=== PATIENT | male | born 1985 ===

== ENCOUNTER 2017-05-03 11:41 | Emergency (ER) | payer BC ==
--- NOTE | 2017-05-03 13:15 | UC ---
[facility] HPI - HPI Summary HPI Summary: 31 y/o male presents to the urgent care c/o LF gum swelling and molar pain for the past 2 days. He is having difficulty eating and sleeping last night due to pain. Nov[place] has never seen a dentist. Pain is 8/10. Pt has taking Excedrin PO yesterday which has not helped. Pt denies fever, SOB, chest pain, N/V/D. - History of Current Complaint Chief Complaint: UCDentalProblem Stated Complaint: MOUTH SWELLING Time Seen by Provider: 05/03/17 13:04 Hx Obtained From: Patient Onset/Duration: Gradual Onset, Lasting Days - 2 day Severity: Severe Pain Intensity: 8 Pain Scale Used: 0-10 Numeric Aggravating: Chewing, Other - eating Alleviating: OTC Meds Related History: Swelling - Allergies/Home Medications Allergies/Adverse Reactions: Allergies Allergy/AdvReac Type Severity Reaction Status Date / Time No Known Allergies Allergy Verified 05/03/17 12:19 Home Medications: Home Medications Bervyrq-[id number]-Uajsoead [Excedrin Extra Strength] 1 tab PO 05/03/17 [ History] PMH/Surg Hx/FS Hx/Imm Hx Previously Healthy: Yes Other Endocrine History: ITP in remission since 4 years ago - Surgical History Surgical History: None - Family History Known Family History: Positive: None - Pt denies FMHX - Social History Occupation: Employed Full-time Lives: With Family Alcohol Use: None Alcohol Amount: at communion Substance Use Type: Marijuana Substance Use Comment - Amount & Last Used: every 3 months Smoking Status (MU): Light Every Day Tobacco Smoker Type: Cigarettes Review of Systems Constitutional: Negative Skin: Negative Eyes: Negative ENT: Sore Throat, Other - LF upper gum sweeling and molar pain Respiratory: Negative Cardiovascular: Negative Gastrointestinal: Negative Genitourinary: Negative Motor: Negative Neurovascular: Negative Musculoskeletal: Negative Neurological: Negative Psychological: Negative Is Patient Immunocompromised?: No All Other Systems Reviewed And Are Negative: Yes Physical Exam Triage Information Reviewed: Yes Appearance: Well-Appearing, Well-Nourished, Pain Distress - moderate Vital Signs: Initial Vital Signs Temp 98.2 F 05/03/17 12:14 Pulse 65 05/03/17 12:14 Resp 18 05/03/17 12:14 BP 122/79 05/03/17 12:14 Pulse Ox 100 09/09/17 12:14 Vital Signs Reviewed: Yes Eye Exam: Normal Eyes: Positive: Conjunctiva Clear - PERRLA, EOMI, ENT: Positive: Normal ENT inspection, Hearing grossly normal, Pharyngeal erythema. Negative: Tonsillar swelling, Tonsillar exudate, Trismus Dental: Positive: Percussion Tenderness @ - molar # 16., Gross Decay/Caries @ - Left upper jaw with moderate swelling and and erythema on #16 LF back molar. mild yellowish discharge observed., Abscess @, Cervical Lymphadenopathy - LF anterior cervical lymphadenopathy tender and swollen to palapation. Negative: Bleeding Neck exam: Normal Neck: Positive: Supple, Nontender Respiratory Exam: Normal Respiratory: Positive: Chest non-tender, Lungs clear, Normal breath sounds, No respiratory distress Cardiovascular Exam: Normal Cardiovascular: Positive: RRR, No Murmur, Pulses Normal Abdominal Exam: Normal Abdomen Description: Positive: Nontender, No Organomegaly, Soft. Negative: CVA Tenderness (R), CVA Tenderness (L) Bowel Sounds: Positive: Present Musculoskeletal Exam: Normal Musculoskeletal: Positive: Strength Intact, ROM Intact, No Edema Neurological Exam: Normal Psychological Exam: Normal Skin Exam: Normal Dental Complaint Course/Dx - Course Course Of Treatment: 31 y/o male presents to the urgent care c/o LF gum swelling and molar pain for the past 2 days. He is having difficulty eating and sleeping last night due to pain. [place] has never seen a dentist. Pain is 8/10. Pt has taking Excedrin PO yesterday which has not helped. Pt denies fever, SOB, chest pain, N/V/D.Hx obtained. PE abnormal finding:Dental: Positive: Percussion Tenderness @ - molar # 16., Gross Decay/Caries @ - Left upper jaw with moderate swelling and erythema on #16 LF back molar. mild yellowish discharge observed., positive LF anterior cervical lymphadenopathy tender and swollen to palapation. Pt with probably a dental abscess. Pt given Lidocaine viscous tp apply topically with a gauze at the clinic. Ceftriaxone IM inj ordered and Toradol IM inj for pain. Pt tolerated well medications and felt better after 20 minutes of observation. Patient strongly given a list of Dentist and strongly advised to f/u with Dentist as soon as possible. Patient was instructed to return to the urgent care immediately if any of the symptoms return or worsens. If he develops any fever or increase in pain, or trismus despite taking antibiotics to go immediately to the ER for further management. Plan of care was discussed with the patient and understands and agrees. All questions were answered at patient satisfaction. There were no further complaints or concerns. Pt left the clinic ambulating, A&OX3 and hemodinamically stable. - Differential Dx/Diagnosis Differential Diagnosis/Dx: Dental Abscess, Dental Caries, Fractured Tooth, Gingivitis, Peridontic Disease, Pharyngitis, Tonsillitis Provider Diagnoses: 1- Dental abscess - Physician Notification/Consults Discussed Patient Care With: Cy Boucher - Pt Citlaly agreed with PT care and plan Discharge - Discharge Plan Condition: Stable Disposition: HOME Prescriptions: Amoxicillin/Clavulanate TAB* [Augmentin TAB 875*] 875 mg PO BID #20 tab Naproxen TAB* [Naprosyn 250 mg TAB*] 500 mg PO Q8H PRN #30 tab PRN Reason: Pain Patient Education Materials: Dental Abscess (ED) Referrals: Non Staff,Doctor [Primary Care Provider] - [facility] [place] [facility] [Outside] - 2 Days Additional Instructions: 1-Please take full course of antibiotic to avoid resistance. 2- Take Naproxen as instructed after meals to alleviate pain and swelling. 3- SEE a Dentist from the list provided as soon as possible for further treatment. 4- If symptoms do not improve or worsen please return to the urgent care or f/u with your PCP for further evaluation and treatment
[2017-05-03] MEDS ORDERED: Lidocaine 2% VISCOUS* 15 ML UDC SWISH SPIT PRN (13:24)
[2017-05-03] MEDS ORDERED: Ketorolac INJ* 60 MG/2 ML VIAL IM ONE (13:25)
[2017-05-03] MEDS ORDERED: cefTRIAXone VIAL(*) 1,000 MG VIAL IM ONE (13:26)
[2017-05-03] MEDS ORDERED: Lidocaine 1%* 5 ML VIAL INJ ONE (13:27)
[2017-05-03] MEDS ORDERED: Lidocaine 2% VISCOUS* 15 ML UDC SWISH SPIT ONE (13:41)
[2017-05-03] MEDS ORDERED: Lidocaine 1% MPF* 2 ML VIAL INJ ONE (13:41)
== END 2017-05-03 14:52 | disposition home or self-care (01) ==
LOC: UCEAST 11:41
DX: K04.7 Periapical abscess without sinus (principal)
CPT/HCPCS: 96372; 99202; G0463; J0696; J1885

== ENCOUNTER 2017-07-22 13:42 | Emergency (ER) | payer SELFPAY ==
[2017-07-22] MEDS ORDERED: HYDROcodone/ACETAMIN 5-325 MG* 1 TAB PO ONE (14:59)
[2017-07-22] MEDS ORDERED: Ibuprofen TAB* 600 MG PO ONE (14:59)
--- NOTE | 2017-07-22 15:14 | UC ---
Minor Trauma HPI - HPI Summary HPI Summary: 31 year old male with history of ITP s/p treatment here with right sided dental pain after he fell two days ago. He reports he had mechanical fall, landed on his right side of his face with no LOC. He reports he slipped and fell on his right side of his face. A piece of his tooth broke off and spit it out. He denies swallowing or inhaling his tooth. He took excedrin and topical gel with partial relief of his symptoms. No other complaints. - History of Current Complaint Chief Complaint: UCDentalProblem Stated Complaint: BROKEN TOOTH Time Seen by Provider: 07/22/17 14:49 Hx Obtained From: Patient Onset/Duration: Sudden Onset Onset Of Pain: Immediate Severity Initially: Severe Severity Currently: Moderate Pain Intensity: 10 Pain Scale Used: 0-10 Numeric Mechanism Of Injury: Blunt Trauma Aggravating Factor(s): Other: - exposure to cold air Alleviating Factor(s): Nothing - Allergies/Home Medications Allergies/Adverse Reactions: Allergies Allergy/AdvReac Type Severity Reaction Status Date / Time No Known Allergies Allergy Verified 05/03/17 12:19 PMH/Surg Hx/FS Hx/Imm Hx Previously Healthy: No - Surgical History Surgical History: None - Family History Known Family History: Positive: None - Pt denies FMHX - Social History Alcohol Use: None Alcohol Amount: at communion Substance Use Type: Marijuana Substance Use Comment - Amount & Last Used: every 3 months Smoking Status (MU): Light Every Day Tobacco Smoker Type: Cigarettes Review of Systems Constitutional: Negative Skin: Negative Eyes: Negative ENT: Negative Respiratory: Negative All Other Systems Reviewed And Are Negative: Yes Physical Exam Triage Information Reviewed: Yes Vital Signs: Initial Vital Signs Temp 37.1 C 07/22/17 14:12 Pulse 69 07/22/17 14:12 Resp 18 07/22/17 14:12 BP 130/74 07/22/17 14:12 Pulse Ox 100 07/22/17 14:12 Vital Signs Reviewed: Yes Eye Exam: Normal Eyes: Positive: Conjunctiva Clear ENT Exam: Normal ENT: Positive: Normal ENT inspection Dental Exam: Other - Right lower premolar fracture of tooth with full exposure of dentin with 1/4 tooth in the socket No fluctuance No swelling Neck exam: Normal Neck: Positive: No Lymphadenopathy Respiratory: Positive: Chest non-tender Cardiovascular Exam: Normal Skin Exam: Normal Minor Trauma Course/Dx - Course Course Of Treatment: Dental fracture. Patient with dental fracture on exam. Since this is complicated crown fracture, will treat with pain meds and prophylaxis abx. patient instructed to see dentist tomorrow. - Differential Dx/Diagnosis Differential Diagnosis/HQI/PQRI: Fracture Provider Diagnoses: Dental fracture Discharge - Discharge Plan Condition: Good Disposition: HOME Referrals: Non Staff,Doctor [Primary Care Provider] -
== END 2017-07-22 15:53 | disposition home or self-care (01) ==
LOC: UCEAST 13:42
DX: S02.5XXA Fracture of tooth (traumatic), initial encounter for closed fracture (principal); W01.0XXA Fall on same level from slipping, tripping and stumbling without subsequent striking against object, initial encounter; Y93.9 Activity, unspecified; Y92.9 Unspecified place or not applicable; Y99.9 Unspecified external cause status; Z72.0 Tobacco use; F12.90 Cannabis use, unspecified, uncomplicated
CPT/HCPCS: 99212; A9270-GY; G0463